=== PATIENT | female | born 1965 | race Caucasian/White ===

== ENCOUNTER 2021-05-14 09:29 | Emergency (ER) | payer OTHER ==
[~2021-05-14] VITALS: Ht 165.1 cm; Wt 59.0 kg
[2021-05-14 11:03] LABS: INR 1.02 (0.9-1.2); PROTHROMBIN TIME 12.8 SECONDS (11.8-13.4); PTT 27.9 SECONDS (24.4-34.7)
[2021-05-14 11:12] LABS: BASOPHIL 1.2 % (0-2); EOSINOPHIL 2.5 % (0-5); HGB 14.9 g/dl (12.5-16.0); LYMPHOCYTE 38.2 % (15-48); MCH 31.6 pg (25.0-31.0); MCHC 32.4 g/dL (32.0-36.0); MCV 97.5 fL (78.0-100.0); MONOCYTE 6.1 % (0-12); MPV 10.5 fL (6.0-9.5); NEUTROPHIL 51.2 % (41-80); NRBC 0; PLT 338 K/uL (150-400); RBC 4.72 M/uL (4.20-5.40); WBC 9.6 K/uL (4.0-10.5)
[2021-05-14 11:13] LABS: ALBUMIN 3.4 g/dL (3.4-5.0); BILIRUBIN - TOTAL 0.2 mg/dL (0.2-1.0); BUN/CREAT RATIO (CALC) 13.5 RATIO; CREATININE 0.89 mg/dL (0.51-0.95); GLOBULIN (CALCULATION) 3.1 g/dL; POTASSIUM 4.7 mmol/L (3.5-5.1); TOTAL PROTEIN 6.5 g/dL (6.4-8.2)
== END 2021-05-14 16:36 | disposition left against medical advice (07) ==
LOC: FER 09:29
PROVIDERS: Emergency Medicine
DX: I20.0 Unstable angina (principal); F17.210 Nicotine dependence, cigarettes, uncomplicated; Z60.8 Other problems related to social environment; Z95.5 Presence of coronary angioplasty implant and graft; Z79.82 Long term (current) use of aspirin; Z79.899 Other long term (current) drug therapy
CPT/HCPCS: 36415; 71045; 71275; 80053; 84484; 85025; 85379; 85610; 85730; 93005; J1644; Q9967